=== PATIENT | female | born 1965 | race Caucasian/White ===

== ENCOUNTER 2016-09-30 09:42 | Emergency (ER) | payer MEDICAID ==
--- NOTE | 2016-09-30 09:44 | EDPHY ---
HPI/HX/ROS/PE/MDM Narrative: CHIEF COMPLAINT: Nausea, vomiting. HPI: This is a 51-year-old female who presents via EMS with nausea and vomiting since last night. She admits associated lightheadedness. She denies fever, abdominal pain, chest pain, shortness of breath. She has been drinking heavily recently. Last drink was last night. EMS administered 12.5 IV Phenergan and 500ml IV Saline en route. REVIEW OF SYSTEMS: Aside from elements discussed in the HPI, a comprehensive 10-point review of systems was reviewed and is negative. PMH: Alcohol abuse. SOCIAL HISTORY: Lives in [place]. PHYSICAL EXAM: General:Patient is alert, appears unwell. ENT:Eyes are normal to inspection. ENT inspection normal. Neck: Normal inspection. Full range of motion. Respiratory:No respiratory distress. Breath sounds normal bilaterally. Cardiovascular: Regular rate and rhythm. Strong peripheral pulses. Normal cap refill. Abdomen:The abdomen is nontender to palpation. There are no peritoneal signs. There are normal bowel sounds. Back: Normal to inspection. No tenderness to palpation. Skin: Normal color. No rash. Warm and dry. Extremities: Normal appearance. Full range of motion. Neuro: Oriented x3. Normal motor function. Normal sensory function. ED Course: An IV was established and labs ordered. Chest x-ray obtained. 1L IV saline administered for hydration, along with 1mg IV Ativan for tremors, and 4mg IV Zofran for nausea. Study: PA and Lateral Chest X-ray Indication: Nausea/vomiting. Results: I viewed the images myself on the PACS system. The radiologist interpretation per Dr. Walden is: clear lungs. no acute process. The 12 lead EKG was interpreted by myself. See hard copy and/or "tracemaster" electronic copy for interpretation. 1225: Reassessed patient. MDM: This patient initially arrived with non-specific nausea and malaise. She was not particularly interested in providing much history on initial evaluation, although there was some mention that she has been drinking a lot of alcohol recently. We performed an extensive workup on her here in the ED, which is thankfully negative for signs of ACS, liver failure, infectious process, anemia or other abnormality. I went back to explain these findings to the patient, who now has a list of concerns that include: whether or not she has esophageal cancer based on GERD symptoms, recent swelling of her spleen which she diagnosed using the internet, concern that she has intestinal parasites that have been migrating to her chest. She also is requesting pain medication. I explained to her that there is nothing in our workup to support these diagnoses , but that the ED is not the appropriate place to rule these conditions out. She is comfortable with the plan to follow-up with GI as an outpatient. - Data Points Laboratory Results: Laboratory Results 09/30/16 09:55 09/30/16 09:55 09/30/16 09/30/16 09:55 09:55 WBC 8.74 10^3/uL 10^3/uL (3.80-9.50) RBC 4.32 10^6/uL 10^6/uL (4.18-5.33) Hgb 14.7 g/dL g/dL (12.6-16.3) Hct 42.4 % % (38.0-47.0) MCV 98.1 fL fL (81.5-99.8) MCH 34.0 pg pg (27.9-34.1) MCHC 34.7 g/dL g/dL (32.4-36.7) RDW 12.8 % % (11.5-15.2) Plt Count 212 10^3/uL 10^3/uL (150-400) MPV 10.4 fL fL (8.7-11.7) Neut % (Auto) 75.9 % H % (39.3-74.2) Lymph % (Auto) 17.8 % % (15.0-45.0) [place] % (Auto) 5.6 % % (4.5-13.0) Eos % (Auto) 0.1 % L % (0.6-7.6) Baso % (Auto) 0.3 % % (0.3-1.7) Nucleat RBC Rel Count 0.0 % % (0.0-0.2) Absolute Neuts (auto) 6.62 10^3/uL H 10^3/uL (1.70-6.50) Absolute Lymphs (auto) 1.56 10^3/uL 10^3/uL (1.00-3.00) Absolute Monos (auto) 0.49 10^3/uL 10^3/uL (0.30-0.80) Absolute Eos (auto) 0.01 10^3/uL L 10^3/uL (0.03-0.40) Absolute Basos (auto) 0.03 10^3/uL 10^3/uL (0.02-0.10) Absolute Nucleated RBC 0.00 10^3/uL 10^3/uL (0-0.01) Immature Gran % 0.3 % % (0.0-1.1) Immature Gran # 0.03 10^3/uL 10^3/uL (0.00-0.10) Sodium 142 mEq/L mEq/L (134-144) Potassium 4.0 mEq/L mEq/L (3.5-5.2) Chloride 110 mEq/L mEq/L (97-110) Carbon Dioxide 21 mEq/l L mEq/l (22-31) Anion Gap 11 mEq/L mEq/L (8-16) BUN 12 mg/dL mg/dL (7-23) Creatinine 0.6 mg/dL mg/dL (0.6-1.0) Estimated GFR > 60 Glucose 143 mg/dL H mg/dL (70-100) Calcium 9.2 mg/dL mg/dL (8.5-10.4) Total Bilirubin 1.0 mg/dL mg/dL (0.1-1.4) Conjugated Bilirubin 0.3 mg/dL mg/dL (0.0-0.5) Unconjugated Bilirubin 0.7 mg/dL mg/dL (0.0-1.1) AST 29 IU/L IU/L (14-46) ALT 34 IU/L IU/L (9-52) Alkaline Phosphatase 66 IU/L IU/L (38-126) Troponin I < 0.012 ng/mL ng/mL (0-0.034) Total Protein 7.2 g/dL g/dL (6.3-8.2) Albumin 4.2 g/dL g/dL (3.5-5.0) Lipase 44.0 IU/L IU/L (23-300) Medications Given: Discontinued Medications Sodium Chloride (Ns) 1,000 mls @ 0 mls/hr IV ONCE ONE PRN Reason: Wide Open Stop: 09/30/16 09:46 Last Admin: 09/30/16 10:01 Dose: 1,000 mls Lorazepam (Ativan Injection) 1 mg IVP EDNOW ONE Stop: 09/30/16 09:47 Last Admin: 09/30/16 10:04 Dose: 1 mg Ondansetron HCl (Zofran) 4 mg IVP EDNOW ONE Stop: 09/30/16 09:46 Last Admin: 09/30/16 10:00 Dose: 4 mg General Initial Vital Signs: Initial Vital Signs Temperature (C) 35.8 C L 09/30/16 09:42 Heart Rate 56 L 09/30/16 09:42 Respiratory Rate 16 09/30/16 09:42 Blood Pressure 134/107 H 09/30/16 09:42 O2 Sat (%) 100 09/30/16 09:42 O2 Delivery Mode Room Air Allergies/Adverse Reactions: No Known Allergies Allergy (Unverified 09/30/16 09:48) Home Medications: Medication Instructions Recorded Ondansetron Odt [Zofran Odt] 4 mg PO Q4PRN PRN #8 tab 09/30/16 Departure - Departure Disposition: Home, Routine, Self-Care Clinical Impression: Nausea & vomiting Qualifiers: Vomiting type: unspecified Vomiting Intractability: non-intractable Qualified Code(s): R11.2 - Nausea with vomiting, unspecified Condition: Good Instructions: Acute Nausea and Vomiting (ED) Additional Instructions: Drink plenty of fluids and be sure to get rest. Follow up with your primary care provider tomorrow if symptoms are not improving. You were given the telephone number of the on-call outpatient doctor if you do not have a primary care provider. Return to the emergency department for any serious worsening of condition. Referrals: Sara Martins MD [Medical Doctor] - As per Instructions Caren Alvarez MD [Medical Doctor] - As per Instructions Prescriptions: Ondansetron Odt [Zofran Odt] 4 mg PO Q4PRN PRN #8 tab PRN Reason: Nausea Report Scribed for: Torin Chavez Report Scribed by: Remington Stevenson Date of Report: 09/30/16 Time of Report: 09:47 Physician Review and Approval Statement: Portions of this note were transcribed by a medical billing assistant. I personally performed a history, physical exam, medical decision making, and confirmed accuracy of information the transcribed note.
[2016-09-30] MEDS ORDERED: ONDANSETRON 4 MG/2 ML VIAL IVP ONE (09:45)
[2016-09-30] MEDS ORDERED: NS 1,000 ML IV ONE (09:45)
[2016-09-30] MEDS ORDERED: LORazepam 2 MG/ML INJ IVP ONE (09:46)
[2016-09-30 09:50] VITALS: RESP 16; TEMP 96.4
[2016-09-30 10:08] LABS: % IMMATURE GRANULYOCYTES 0.3 % (0.0-1.1); ABSOLUTE IMMATURE GRANULOCYTES 0.03 10^3/uL (0.00-0.10); ADD DIFF? NO; ADD MORPH? NO; ADD SCAN? NO; ATYPICAL LYMPHOCYTE FLAG 0 (0-99); FRAGMENT RBC FLAG 0 (0-99); HEMATOCRIT 42.4 % (38.0-47.0); HEMOGLOBIN 14.7 g/dL (12.6-16.3); LEFT SHIFT FLG 0 (0-99); LIPEMIA HEMOLYSIS FLAG 90 (0-99); MEAN CELL HEMOGLOBIN CONCENTR. 34.7 g/dL (32.4-36.7); MEAN CELL VOLUME 98.1 fL (81.5-99.8); MEAN PLATELET VOLUME 10.4 fL (8.7-11.7); PLATELET CLUMPS FLAG 0 (0-99); PLATELET COUNT 212 10^3/uL (150-400); RED BLOOD CELL COUNT 4.32 10^6/uL (4.18-5.33); RED CELL DISTRIBUTION WIDTH 12.8 % (11.5-15.2)
[2016-09-30 10:21] LABS: ALANINE AMINOTRANSFERASE 34 IU/L (9-52); ALBUMIN 4.2 g/dL (3.5-5.0); ALKALINE PHOSPHATASE 66 IU/L (38-126); ANION GAP 11 mEq/L (8-16); ASPARTATE AMINOTRANSFERASE 29 IU/L (14-46); BILIRUBIN-CONJUGATED 0.3 mg/dL (0.0-0.5); BILIRUBIN-UNCONJUGATED 0.7 mg/dL (0.0-1.1); CALCIUM 9.2 mg/dL (8.5-10.4); CARBON DIOXIDE 21 mEq/l (22-31); CHLORIDE 110 mEq/L (97-110); CREATININE 0.6 mg/dL (0.6-1.0); GLOMERULAR FILTRATION RATE > 60; GLUCOSE 143 mg/dL (70-100); SODIUM 142 mEq/L (134-144); TOTAL PROTEIN 7.2 g/dL (6.3-8.2)
[2016-09-30 10:31] LABS: TROPONIN I < 0.012 ng/mL (0-0.034)
--- NOTE | 2016-09-30 10:48 | CPEKG ---
Heart Rate: 64 RR Interval: 938 P-R Interval: 168 QRSD Interval: 88 QT Interval: 468 QTC Interval: 483 P Marion: 71 QRS Marion: -15 T Wave Marion: 28 EKG Severity - BORDERLINE ECG - EKG Impression: SINUS RHYTHM ,PACEMAKER ACTIVITY EKG Impression: BORDERLINE LEFT AXIS DEVIATION Electronically Signed By: Camden Wu 01-Oct-2016 10:05:38
[2016-09-30] MEDS ORDERED: HYDROCODONE/APAP 5/325 TAB PO ONE (12:28)
[2016-09-30 12:44] VITALS: BP 147/62; PULSE 64; O2SAT 96
== END 2016-09-30 13:15 | disposition home or self-care (01) ==
DX: R11.2 Nausea with vomiting, unspecified (principal)
CPT/HCPCS: 96374; J2405